=== PATIENT | male | born 1955 | race Two or more races ===

== ENCOUNTER 2021-09-26 14:51 | Emergency (ER) | payer OTHER ==
[~2021-09-26] VITALS: Ht 170.2 cm; Wt 81.6 kg
[2021-09-26] MEDS ORDERED: LOSARTAN POTAS100 MG PO (15:07)
== END 2021-09-26 18:38 | disposition home or self-care (01) ==
LOC: ER 14:51
DX: R31.9 Hematuria, unspecified (principal); N40.0 Benign prostatic hyperplasia without lower urinary tract symptoms